=== PATIENT | male | born 1970 | race Caucasian/White ===

== ENCOUNTER → 2017-06-01 | Outpatient (REF) | payer BC | LOC: M LAB REF 18:41 | DX: D48.5 Neoplasm of uncertain behavior of skin (principal) | CPT/HCPCS: 88305 ==

== ENCOUNTER 2017-09-06 22:26 | Emergency (ER) | payer BC ==
[2017-09-06] MEDS: ADACEL/BOOSTRIX VACCINE (DIPHTH/PERTUSS/ACELL/TETANUS)0.5ML SYR (90715) IM (22:58)
[2017-09-06] MEDS: TETRACAINE 0.5% OPHTH SOLN 4ML OS (22:58)
[2017-09-06] MEDS: GENTAMICIN 0.3% OPHTH SOL 5 ML BTL OS (23:11)
== END 2017-09-06 23:20 | disposition home or self-care (01) ==
LOC: M ED 22:26
DX: S05.02XA Injury of conjunctiva and corneal abrasion without foreign body, left eye, initial encounter (principal); W31.1XXA Contact with metalworking machines, initial encounter; Y92.098 Other place in other non-institutional residence as the place of occurrence of the external cause; Z79.899 Other long term (current) drug therapy
CPT/HCPCS: 90715

== ENCOUNTER → 2018-03-12 | Outpatient (CLI) | payer BC ==
[~2018-03-12] MED LIST: ATEN50TA2 PO; LISI10TA4; SYNT125T
--- NOTE | 2018-03-17 08:07 | SLEEPHOME ---
DATE OF PROCEDURE: 03/12/2018 ORDERED: Kamala Quintana Diagnostic home sleep testing was performed due to concern for the obstructive sleep apnea syndrome in this patient with a history of excessive somnolence and nonrestorative sleep who has comorbidities of hypertension and obesity. For testing, a nocturnal T3 respiratory monitoring device was used. Continuous record was made of pulse, oxygen saturation, airflow, chest and abdominal strain and body position. 9 hours and 59 minutes of data were reviewed. Of these, 8 hours and 28 minutes were marked as time in bed. During the interval marked time in bed, there were 745 respiratory events identified of 10 seconds in duration or greater for a respiratory event index of 88. The events were predominantly obstructive, though 55 central and mixed apneas were also seen. Baseline pulse rate was 62 beats per minute. Pulse rate ranged from 32 to 105. Baseline saturation was 93%. Saturations fell as low of 80%. Testing was performed in both the supine and non supine positions. IMPRESSION: Abnormal home sleep testing with repetitive respiratory events and oxygen desaturations to 80% with a respiratory event index of 88 consistent with the obstructive sleep apnea syndrome. RECOMMENDATION: The patient should be encouraged to undergo formal sleep evaluation and in-laboratory pressure titration. Given the frequency of central events, personal titration of pressure therapy in an in-lab setting will be important.
== END ==
LOC: M SLEEP HO 16:29
PROVIDERS: ATTEND Nurse Practitioner Family
DX: R06.83 Snoring (principal); R40.0 Somnolence; G47.30 Sleep apnea, unspecified

== ENCOUNTER → 2018-05-19 | Outpatient (CLI) | payer BC ==
--- NOTE | 2018-05-20 02:36 | REP ---
Clinical: Severe back pain . Technique: AP, lateral, bilateral oblique, and coned-down views. Findings: Alignment and lordosis is maintained. The vertebral bodies including transverse process and spinous processes are intact and normal. There is no evidence for acute fracture / compression injury or subluxation. Minimal disc space narrowing at L5-L1 with mild hypertrophic facet changes are suggested. Remainder examination appears relatively normal for age. Impression: Mild disc space narrowing and L5-S1 cannot be excluded. Electronically Signed by Eliceo Lopez MD 05/20/2018 02:27 A
== END ==
LOC: M RAD 11:30
PROVIDERS: ATTEND Family Medicine
DX: M51.26 Other intervertebral disc displacement, lumbar region (principal)

== ENCOUNTER → 2018-05-21 | Outpatient (CLI) | payer BC ==
--- NOTE | 2018-05-24 18:05 | SLEEPCENT ---
DATE OF PROCEDURE: 05/21/2018 ORDERED BY: Kamala Man Nocturnal polysomnography was performed for the titration of pressure therapy in this patient with a clinical diagnosis of obstructive sleep apnea syndrome confirmed by home testing revealing a respiratory event index of 88. For testing, a [employer] soft edge standard size mask was used, 4 cm of water pressure were applied to the circuit and the lights were extinguished. 8 hours and 6 minutes of data were reviewed. There were 345 minutes of sleep identified. Sleep latency was prolonged at 48 minutes. Rapid eye movement (REM) latency was normal at 77 minutes. Sleep architecture improved with optimal pressure therapy. There were three REM cycles noted. Overall sleep efficiency 71.9%. The electrocardiogram showed a sinus rhythm with an average heart rate of 70 beats per minute. EEG showed normal waveforms for awake and sleep. Respiratory events were fully palliated with continuous positive airway pressure (CPAP) at a pressure of +8. There was some scattered limb activity but remaining measures of sleep physiology were normal. IMPRESSION: Obstructive sleep apnea syndrome (G47.33) RECOMMENDATIONS: Nightly use of pressure therapy 8 cm of water.
== END ==
LOC: M SLEEP 19:20
PROVIDERS: ATTEND Nurse Practitioner Family
DX: G47.33 Obstructive sleep apnea (adult) (pediatric) (principal)

== ENCOUNTER → 2020-03-07 | Outpatient (CLI) | payer SELFPAY | LOC: M LABSMTC 09:58 | PROVIDERS: ATTEND Pediatrics | DX: Z11.59 Encounter for screening for other viral diseases (principal) ==

== ENCOUNTER → 2020-07-20 | Outpatient (CLI) | payer BC ==
[~2020-07-20] MED LIST changes: +LISI10TA22; -LISI10TA4
--- NOTE | 2020-07-20 08:34 | REP ---
INDICATION: LLQ PAIN COMPARISON: None TECHNIQUE: Axial noncontrast images from the lung bases to the pubic symphysis with coronal and sagittal reformations. This CT examination was performed using the following dose reduction techniques: Automated exposure control, adjustment of mA and/or kv according to the patient's size, and use of iterative reconstruction technique. FINDINGS: Lung bases demonstrate scattered noncalcified nodules primarily noted in the left lower lobe including 18 mm nodule.. Hepatomegaly is appreciated without obvious abnormality by noncontrast evaluation. Spleen is upper limits of normal. Pancreas, gallbladder, bilateral adrenal glands and kidneys are normal by noncontrast evaluation. The enteric system is unremarkable and without obstruction or acute inflammatory process. Normal terminal ileum and appendix identified in the right lower quadrant. Scattered colonic diverticula noted without acute diverticulitis. Pelvis demonstrates normal bladder and age-appropriate prostate/seminal vesicles. No ascites. No free air. No adenopathy. No focal inflammatory stranding. Abdominal aorta without aneurysm. Musculoskeletal structures are intact and without acute osseous abnormality. IMPRESSION: 1. No acute abdominopelvic pathology appreciated. 2. Diverticulosis without acute diverticulitis. 3. Hepatomegaly. 4. Scattered pulmonary nodules including 18 mm nodule in the left lower lobe. No prior chest CT is available for comparison. Follow-up contrast-enhanced chest CT is recommended. <Electronically signed by Eliceo Lopez > 07/20/20 [id number]
== END ==
LOC: M RAD 07:05
PROVIDERS: ATTEND Family Medicine
DX: K57.30 Diverticulosis of large intestine without perforation or abscess without bleeding (principal); R16.0 Hepatomegaly, not elsewhere classified; R91.8 Other nonspecific abnormal finding of lung field; R10.32 Left lower quadrant pain

== ENCOUNTER → 2020-08-31 | Outpatient (CLI) | payer BC ==
[~2020-08-31] MED LIST changes: +ISOVUE-370 76% 100ML VIAL As Ordered ONE
--- NOTE | 2020-08-31 09:27 | REP ---
INDICATION: ABNORMAL FINDING OF LUNG FIELD COMPARISON: None TECHNIQUE: Axial contrast enhanced images from the thoracic inlet to the upper abdomen with coronal and sagittal reformations using 75 ml Isovue 370 intravenous contrast material. This CT examination was performed using the following dose reduction techniques: Automated exposure control, adjustment of mA and/or kv according to the patient's size, and use of iterative reconstruction technique. FINDINGS: Scattered small calcified and noncalcified nodules measuring up to 4 mm suggest prior granulomatous disease. There is a 1.9 cm soft tissue mass along the anterobasilar margin of the left lower lobe (series 201; image 72). Nonspecific mediastinal lymph nodes are identified measuring up to approximately 10 mm short axis diameter. No consolidation. No effusion. No pneumothorax. Tracheobronchial tree is patent. Mediastinum demonstrates normal thoracic aorta, pulmonary vasculature, and heart/pericardium. A small hiatal hernia is identified at the gastroesophageal junction. Surrounding musculoskeletal structures are intact. Limited upper abdomen demonstrates normal bilateral adrenal glands. IMPRESSION: 1. Scattered calcified and noncalcified nodules suggesting granulomatous disease. 2. 1.9 cm soft tissue mass along the anterobasilar left lower lobe. While this may also represent sequelae of prior granulomatous disease, further investigation is required. Consider PET-CT and/or biopsy. <Electronically signed by Eliceo Lopez > 08/31/20 [id number]
== END ==
LOC: M RAD 07:01
PROVIDERS: ATTEND Family Medicine
DX: R91.8 Other nonspecific abnormal finding of lung field (principal)
CPT/HCPCS: 71260; Q9967

== ENCOUNTER → 2020-09-07 | Outpatient (CLI) | payer BC ==
[~2020-09-07] MED LIST changes: -ISOVUE-370 76% 100ML VIAL As Ordered ONE
== END ==
LOC: M LAB 14:47
PROVIDERS: ATTEND Internal Medicine Pulmonary Disease
DX: G47.33 Obstructive sleep apnea (adult) (pediatric) (principal)

== ENCOUNTER → 2020-10-09 | Outpatient (CLI) | payer BC ==
--- NOTE | 2020-10-09 16:21 | REP ---
INDICATION: DIAGNOSING LUNG NODULE R91.8. COMPARISON: Comparison CT study of the chest August 31, 2020.. TECHNIQUE: Fifty minutes following the intravenous injection of a 9.31 mCi dose of F-18 FDG, three-dimensional PET scintigraphy is acquired from the skull base to the proximal thighs. Triplanar noncontrast CT scanning is acquired through the same anatomic range for attenuation correction, and image registration with scan parameters optimized to minimize radiation exposure to the patient. PET scintigraphy and CT datasets were fused and displayed on a workstation with multiplanar and projection display capability. FINDINGS: Head and neck soft tissues are unremarkable. In the chest, the left lower lobe pulmonary nodule shows mildly hypermetabolic uptake, maximum standard uptake value in this is 3.31. There is a small subcarinal lymph node which shows hypermetabolic uptake as well, SUV 4.53. There is an AP window region 1.5 cm lymph node with maximum standard uptake value 3.31. This is also minimally hypermetabolic. No adrenal uptake is seen. No other abnormal hypermetabolic uptake is seen in the thorax. In the abdomen and pelvis, normal hepatic, splenic, gastrointestinal, and genitourinary FDG accumulation is seen. No abnormal hypermetabolic uptake is seen in the abdomen or pelvis. IMPRESSION: Mildly hypermetabolic uptake is seen in the left lower lobe nodule as well as in a AP window region mediastinal lymph node and in a subcarinal lymph node. This compatible with granulomatous as well as malignant disease. <Electronically signed by Mauricio Armstrong > 10/09/20 [id number]
== END ==
LOC: M PLARAD 08:50
PROVIDERS: ATTEND Internal Medicine Pulmonary Disease
DX: R91.8 Other nonspecific abnormal finding of lung field (principal)
CPT/HCPCS: 78815; A9552

== ENCOUNTER 2021-02-18 15:06 | Emergency (ER) | payer BC ==
[~2021-02-18] VITALS: Ht 182.9 cm; Wt 144.3 kg
--- OUTSIDE RECORDS SUMMARY | 2021-02-18 15:15 | CCD ---
Author Author [facility] Organization [facility] Address Unknown Phone Unavailable Care Team Providers Care Vp Corporate Partnerships Name Role Phone Esha Tariq MD Unavailable Unavailable Esha Tariq MD Unavailable Unavailable Esha Tariq MD Unavailable Unavailable Esha Tariq MD Unavailable Unavailable Esha Tariq MD Unavailable Unavailable Esha Tariq MD Unavailable Unavailable Esha Tariq MD Unavailable Unavailable Esha Tariq MD Unavailable Unavailable Esha Tariq MD Unavailable Unavailable Esha Tariq MD Unavailable Unavailable Esha Tariq MD Unavailable Unavailable Esha Tariq MD Unavailable Unavailable Esha Tariq MD Unavailable Unavailable Esha Tariq MD Unavailable Unavailable Esha Tariq MD Unavailable Unavailable Esha Tariq MD Unavailable Unavailable Esha Tariq MD Unavailable Unavailable Esha Tariq MD Unavailable Unavailable Esha Tariq MD Unavailable Unavailable Esha Tariq MD Unavailable Unavailable Esha Tariq MD Unavailable Unavailable Esha Tariq MD Unavailable Unavailable Esha Tariq MD Unavailable Unavailable Esha Tariq MD Unavailable Unavailable Esha Tariq MD Unavailable Unavailable Esha Tariq MD Unavailable Unavailable Esha Tariq MD Unavailable Unavailable Esha Tariq MD Unavailable Unavailable Esha Tariq MD Unavailable Unavailable Esha Tariq MD Unavailable Unavailable Re-disclosure Warning The records that you are about to access may contain information from federally-assisted alcohol or drug abuse programs. If such information is present, then the following federally mandated warning applies: This information has been disclosed to you from records protected by federal confidentiality rules (42 CFR part 2). The federal rules prohibit you from making any further disclosure of this information unless further disclosure is expressly permitted by the written consent of the person to whom it pertains or as otherwise permitted by 42 CFR part 2. A general authorization for the release of medical or other information is NOT sufficient for this purpose. The Federal rules restrict any use of the information to criminally investigate or prosecute any alcohol or drug abuse patient.The records that you are about to access may contain highly sensitive health information, the redisclosure of which is protected by Article 27-F of the [facility] Public Health law. If you continue you may have access to information: Regarding HIV / AIDS; Provided by facilities licensed or operated by the [facility] Office of Mental Health; or Provided by the [facility] Office for People With Developmental Disabilities. If such information is present, then the following [facility] mandated warning applies: This information has been disclosed to you from confidential records which are protected by state law. State law prohibits you from making any further disclosure of this information without the specific written consent of the person to whom it pertains, or as otherwise permitted by law. Any unauthorized further disclosure in violation of state law may result in a fine or correction sentence or both. A general authorization for the release of medical or other information is NOT sufficient authorization for further disc losure. Encounters Encounter Providers Location Date Indications Data Source(s ) Outpatient Attender: Esha Chavis/Jerzy teixeira 10/22/2020 02:30:00 PM EDT [facility] ([facility] Outpatient Attender: Esha Chavis/Jerzy teixeira 09/07/2020 11:00:00 AM EDT [facility] ([facility]) Immunizations Vaccine Date Status Description Data Source(s) COVID-19 VACCINE Maureen 08/19/2020 12:00:00 AM EDT completed [facility] Vaccine Series Complete: YESThis Data wa s Submitted to [facility] Via [employer]. Medications No Information Insurance Providers Payer name Policy type / Coverage type Policy ID Covered green party ID Covered green party's relationship to peralta Policy [place] Plan Information [facility] [id number] SP [id number] [facility] [id number] SP [id number] BLUE CARD C [id number] Self [id number] [employer] [place] 302/307 [id number] SP [id number] [place]/307 [id number] SP [id number] [place] 306/806 [id number] SP [id number] [employer] [place] 306/806 [id number] SP [id number] [place] 302/307 [id number] SP [id number] [facility] [id number] SP [id number] [place] [place] 302/307 [id number] SP [id number] SPECTRUM [id number] SP [id number] [employer] BCBS P [id number] S [id number] [place] [place] P[place] 302/307 [id number] SP [id number] SELF PAY ONLY [id number] SP [id number] Problems, Conditions, and Diagnoses No Information Surgeries/Procedures Procedure Description Date Indications Data Source(s) OFFICE OUTPATIENT VISIT 25 MINUTES 10/22/2020 12:00:00 AM EDT [facility] ([facility]) Spirometry 09/07/2020 12:00:00 AM EDT [facility] ([facility]) OFFICE OUTPATIENT VISIT 25 MINUTES 09/07/2020 12:00:00 AM EDT [facility] ([facility]) Results ID Date Data Source [id number] 09/07/2020 03:29:00 PM EDT [facility] ([facility]) Name Value Range Interpretation Code Description Data Chelsea rce(s) Supporting Document(s) Angiotensin converting enzyme [Enzymatic activity/volu me] in Serum or Plasma 30 U/L 14-82 Normal (applies to non-numeric results) [facility] Rheumatoid factor [Units/volume] in Serum or Plasma Laboratory t est result Normal (applies to non-numeric results) [facility]) ID Date Data Source [id number] 09/07/2020 03:29:00 PM EDT [facility]) Name Value Range Interpretation Code Description Data Chelsea rce(s) Supporting Document(s) QuantiFERON Criteria Laboratory test result Norm al (applies to non-numeric results) [facility]) . The QuantiFERON-TB Gold Plus result is determined by subtracting the Nil value from either TB antigen (Ag) tube. The mitogen tube serves as a control for the test. QuantiFERON TB1 Ag Value 0.03 IU/ml Normal (applies to non -numeric results) [facility]) QuantiFERON Mitogen Value Laboratory test result Normal (applies to non- numeric results) [facility]) QuantiFERON TB2 Ag Value 0.03 IU/ml Normal (applies to non -numeric results) [facility] ([facility]) QuantiFERON Nil Value 0.02 IU/ml Normal (applies to non-nu meric results) [facility] ([facility]) QuantiFERON-TB Gold Plus Laboratory test result Normal (applies to non-numeric results) [facility]) The specimen received for QuantiFERON te sting was incubated by the ordering institution. Specific procedures outlined in our Directory of Services and in the package insert for the QuantiFERON Gold (In Tube) test must be followed to enable for proper stimulation of cells for the production of interferon gamma. Chemiluminescence immunoassay methodology Performed at: RN - [facility] [address] [id number] Associate Sales: Serene Agustin MD, Phone: [phone] ID Date Data Source [id number] 09/07/2020 03:29:00 PM EDT [facility] ([facility]) Name Value Range Interpretation Code Description Data Chelsea rce(s) Supporting Document(s) Aspergillus Fumigatus Jacyee Laboratory test result Normal (applies to non- numeric results) [facility]) Aspergillus Niger Jaycee Laboratory test result Nor mal (applies to non-numeric results) [facility]) Aspergillus Flavus Jaycee Laboratory test result No rmal (applies to non-numeric results) [facility] ([facility]) ID Date Data Source [id number] 09/07/2020 03:29:00 PM EDT [facility] ([facility]) Name Value Range Interpretation Code Description Data Chelsea rce(s) Supporting Document(s) Coccidioides sp Ab [Units/volume] in Serum 0.5 IV Normal (applies to non- numeric results) [facility] ([facility]) INTERPRETIVE INFORMATION: Coccidioides A ntibody, Ig.9 IV or less: Negative - No signif icant level of Coccidioides IgG antibody detected. 1.0 - 1.4 IV: Equivocal - Question able presence of Coccidioides IgG antibody detected. Repeat testing in 10-14 days may be helpful. 1.5 IV or greater: Positive - Presence of IgG antibody to Coccidioides detected, suggestive of current or past infection. IgG antibody usually appears by the third week of infection and may persist for years. Both tube precipitin (TP) and CF antigens are represented in the [facility] tests. Histoplasmosis Antibody Laboratory test result A bnormal (applies to non- numeric results) [facility] ([facility]) Detected Detected, M band(s) observed. INTERPRETIVE INFORMATION: Histoplasma spp. Antibodies by Immunodiffusion The immunodiffusion test can detect precipitins to specific Histoplasma protein antigens (M and H). The M band often appears first and may occur without the H band. M precipitin is found in about 70 percent of both acute and chronic histoplasmosis cases. Both M and H occur together in only about 10 percent of patients. REFERENCE RANGE: None Detected Blastomyces Antibody Level Laboratory test result Normal (applies to non- numeric results) [facility] ([facility]) Cryptococcus sp Ag [Presence] in Serum by Immunoassay Laboratory test result Normal (applies to non-numeric results) [facility] ([facility]) Performed at: - [facility] [id number] Associate Sales: Delbert White MD, Phone: [phone] Performed at: [place] [address] [id number] Associate Sales: Paty Ashley MD, Phone: [phone] Performed at: RN - [facility] [address] [id number] Associate Sales: Serene Agustin MD, Phone: [phone] ID Date Data Source [id number] 09/07/2020 10:31:00 AM EDT [facility] ([facility], ) Name Value Range Interpretation Code Description Data Chelsea rce(s) Supporting Document(s) PDFReport Laboratory test result [facility] ([facility], ) FVC-Pred 5.43 L [facility] ([facility], ) FVC-Pre 4.30 L [facility] ([facility]) FVC-%Pred-Pre 79 L [facility] ([facility], ) Fev1-Pred 4.22 L [facility] ([facility]) FVC-LLN 4.44 L [facility] ([facility]) Fev1-Pre 3.49 L [facility] ([facility]) Fev1-%Pred-Pre 82 L [facility] ([facility]) Fev1-LLN 3.38 L [facility] ([facility]) Fev6-Pre 4.30 L [facility] ([facility]) Fev6-Pred 5.25 L [facility] ([facility]) Fev6-%Pred-Pre 82 L [facility] ([facility], ) Fev6-LLN 4.28 L [facility] ([facility]) Wfk8pcc-Ddor 78 % [facility] ([facility]) Vaz2kax-Fox 81 % [facility] ([facility]) Gje6yak-JPV 68 % [facility] ([facility]) Wjs6gax-%Pred-Pre 104 % [facility] ([facility]) Gak7vnq-Adjy 97 % [facility] ([facility], ) Zrd1xch-Cov 100 % [facility] ([facility], ) FEFMax-Pred 10.33 L/E/sec [facility] ([facility]) FEFMax-Pre 7.25 L/E/sec [facility] ([facility]) Lpb6xes-%Pred-Pre 103 % [facility] ([facility]) FEFMax-%Pred-Pre 70 L/E/sec [facility] ([facility]) FEFMax-LLN 7.87 L/E/sec [facility] ([facility]) Awj2327-Gfx 3.69 L/E/sec [facility] ([facility]) Alb4740-Mcwx 3.71 L/E/sec [facility] ([facility]) Urd7104-%Pred-Pre 99 L/E/sec [facility] ([facility]) Gqh3178-LHV 2.02 L/E/sec [facility] ([facility]) ExpTime-Pre 5.33 sec [facility] ([facility]) Jim6vbd4-Cosw 81 % [facility] ([facility]) Gfi0doc0-Bni 81 % [facility] ([facility]) Kwj9gee4-%Pred-Pre 100 % [facility] ([facility]) Pdg0emm5-IXO 72 % [facility] ([facility]) ID Date Data Source [id number] 03/07/2020 12:00:00 AM EST [facility] Name Value Range Interpretation Code Description Data Chelsea rce(s) Supporting Document(s) 2019-nCoV RNA XXX JACKLYN+probe-Imp [facility] This lab was ordered by [facility] and reported by [employer] Procedure Social History Code Duration Value Status Description Data Source(s ) Smoking 10/22/2020 12:00:00 AM EDT Patient has never smoked co mpleted Patient has never smoked [facility] ([facility]) Vital Signs ID Date Data Source UNK Name Value Range Interpretation Code Description Data Source(s) Systolic blood pressure 128 mm[Hg] 128 mm[Hg] M [facility] ([facility]) Diastolic blood pressure 74 mm[Hg] 74 mm[Hg] [facility] ([facility]) Oxygen saturation in Arterial blood by Pulse oximetry 96 % 96 % [facility] ([facility]) Heart rate 81 /min 81 /min [facility] ([facility]) Body weight 320.00 [lb_av] 320.00 [lb_av] [facility] ([facility]) Body mass index (BMI) [Ratio] 43.4 kg/m2 43.4 k g/m2 [facility] ([facility]) Orma body weight 178 [lb_av] 178 [lb_av] [facility] ([facility]) Body weight 145.152 kg 145.152 kg [facility] ([facility]) Body surface area Derived from formula 2.60 m2 2.60 m2 [facility] ([facility]) Body height 72 [in_i] 72 [in_i] [facility] ([facility]) 6'0" Diastolic blood pressure 78 mm[Hg] 78 mm[Hg] [facility] ([facility]) Heart rate 83 /min 83 /min [facility] ([facility]) Oxygen saturation in Arterial blood by Pulse oximetry 98 % 98 % [facility] ([facility]) Body height 72 [in_i] 72 [in_i] [facility] ([facility]) 6'0" Body surface area Derived from formula 2.60 m2 2.60 m2 [facility] ([facility]) Body weight 144.698 kg 144.698 kg [facility] ([facility]) Systolic blood pressure 138 mm[Hg] 138 mm[Hg] [facility] Body weight 319.00 [lb_av] 319.00 [lb_av] [facility] ([facility]) Body mass index (BMI) [Ratio] 43.3 kg/m2 43.3 k g/m2 [facility] ([facility]) Orma body weight 178 [lb_av] 178 [lb_av] [facility] ([facility]) Oxygen saturation in Arterial blood by Pulse oximetry 98 % 98 % [facility] ([facility]) Body height 72 [in_i] 72 [in_i] [facility] ([facility]) 6'0" Body weight 319.00 [lb_av] 319.00 [lb_av] [facility] ([facility]) Body mass index (BMI) [Ratio] 43.3 kg/m2 43.3 k g/m2 [facility] ([facility]) Orma body weight 178 [lb_av] 178 [lb_av] [facility] ([facility]) Body weight 144.698 kg 144.698 kg [facility] ([facility]) Body surface area Derived from formula 2.60 m2 2.60 m2 [facility] ([facility]) Body weight 321.25 [lb_av] 321.25 [lb_av] [facility] Body mass index (BMI) [Ratio] 43.6 kg/m2 43.6 k g/m2 [facility] ([facility]) Orma body weight 178 [lb_av] 178 [lb_av] [facility] Body weight 145.719 kg 145.719 kg [facility] ([facility]) Body surface area Derived from formula 2.61 m2 2.61 m2 [facility] ([facility]) Systolic blood pressure 128 mm[Hg] 128 mm[Hg] [facility] ([facility]) Diastolic blood pressure 86 mm[Hg] 86 mm[Hg] [facility] ([facility]) Heart rate 78 /min 78 /min [facility] ([facility]) Oxygen saturation in Arterial blood by Pulse oximetry 98 % 98 % [facility] ([facility]) Body temperature 97.1 [degF] 97.1 [degF] [facility] ([facility]) Body height 72 [in_i] 72 [in_i] [facility] ([facility]) 6'0"
[2021-02-18] MEDS ORDERED: LEVO175T2 (15:21)
[2021-02-18 15:57] LABS: BASO # 0.1 10^3/uL (0.0-0.2); BASO % 0.7 % (0.0-1.0); EOS # 0.1 10^3/uL (0.0-0.5); EOS % 0.7 % (0.0-3.0); HEMATOCRIT 46.7 % (42.0-52.0); HEMOGLOBIN 15.3 g/dl (13.5-17.5); LYMPH # 1.7 10^3/uL (1.5-5.0); LYMPH % 20.5 % (24.0-44.0); MEAN CORPUSCULAR HEMOGLOBIN 27.7 pg (27.0-33.0); MEAN CORPUSCULAR HGB CONC 32.8 g/dl (32.0-36.5); MEAN CORPUSCULAR VOLUME 84.6 fl (80.0-96.0); MONO # 0.7 10^3/uL (0.0-0.8); NEUTROPHILS # 5.9 10^3/uL (1.5-8.5); NEUTROPHILS % 69.5 % (36.0-66.0); PLATELET COUNT, AUTOMATED 234 10^3/uL (150-450); RED BLOOD COUNT 5.52 10^6/uL (4.30-6.10); WHITE BLOOD COUNT 8.5 10^3/uL (4.0-10.0)
[2021-02-18 16:26] LABS: CK-MB VALUE MASS 2.3 NG/ML (<3.6); CPK CREATINE PHOSPHOKINASE 126 U/L (39-308); MB/CK RELATIVE INDEX 1.83 (< OR =4); TROPONIN I < 0.02 NG/ML (< 0.10)
[2021-02-18 16:34] LABS: BLOOD UREA NITROGEN 19 MG/DL (7-18); CALCIUM LEVEL 9.5 MG/DL (8.5-10.1); CARBON DIOXIDE LEVEL 28 MEQ/L (21-32); CHLORIDE LEVEL 106 MEQ/L (98-107); CREATININE FOR GFR 0.96 MG/DL (0.70-1.30); GLOMERULAR FILTRATION RATE > 60.0 (>56); GLUCOSE, FASTING 103 MG/DL (70-100); POTASSIUM SERUM 4.3 MEQ/L (3.5-5.1); SODIUM LEVEL 140 MEQ/L (136-145)
--- NOTE | 2021-02-18 19:46 | ECGEPIP ---
[facility] - ED Test Date: 2021-02-18 Pat Name: BRYANNA BURRELL Department: Room: - Gender: Male Hall Tender: DERRICK : 1970 Requested By: Rohit Hitchcock Order Number: [id number] Reading MD: Rohit Hitchcock Measurements Intervals [place] Rate: 76 P: 48 NC: 162 QRS: 34 QRSD: 76 T: 9 QT: 382 QTc: 429 Interpretive Statements Normal sinus rhythm Nonspecific ST T wave changes No prior ECG for comparison Electronically Signed on 02-18-2021 19:45:55 EST by Rohit Hitchcock
--- OUTSIDE RECORDS SUMMARY | 2021-02-18 22:11 | CCD ---
Author Author [facility] Organization [facility] Address Unknown Phone Unavailable Care Team Providers Care Commodity Analyst Name Role Phone Esha Tariq MD Unavailable Unavailable Esha Tariq MD Unavailable Unavailable Esha Tariq MD Unavailable Unavailable Esha Tariq MD Unavailable Unavailable Esha Tariq MD Unavailable Unavailable Esha Tariq MD Unavailable Unavailable Esha Tariq MD Unavailable Unavailable Esha Tariq MD Unavailable Unavailable Esha Tariq MD Unavailable Unavailable Esah Tariq MD Unavailable Unavailable Esha Tariq MD [...] is protected by Article 27-F of the [facility] Public Health law. If you continue you may have access to information: Regarding HIV / AIDS; Provided by facilities licensed or operated by the [facility] Office of Mental Health; or Provided by the [facility] Office for People With Developmental Disabilities. If such information is present, then the following [facility] mandated warning applies: This information has [...] law may result in a fine or penitentiary sentence or both. A general authorization for the release of medical or other information is NOT sufficient authorization for further disc losure. Encounters Encounter Providers Location Date Indications Data Source(s ) Outpatient Attender: Esha Chavis/Jerzy teixeira 10/22/2020 02:30:00 PM EDT [facility] ([facility] Outpatient Attender: Esha Chavis/Jerzy teixeira 09/07/2020 11:00:00 AM EDT [facility] ([facility]) Immunizations Vaccine Date Status Description Data Source(s) COVID-19 VACCINE Maureen 08/19/2020 12:00:00 AM EDT completed [facility] Vaccine Series Complete: YESThis Data wa s Submitted to [facility] Via [id number]. Medications No Information Insurance Providers Payer name Policy type / Coverage type Policy ID Covered republican ID Covered republican's relationship to peralta Policy Peralta Plan Information [facility] [id number] SP [id number] [facility] [id number] SP [id number] BLUE CARD C [id number] Self [id number] [employer] [place]/307 [id number] SP [id number] [place] [place]/307 [id number] SP [id number] [place] 306/806 [id number] SP [id number] [employer] [place] 306/806 [id number] SP [id number] [place] [place] 302/307 [id number] SP [id number] [facility] [id number] SP [id number] [employer] [place] 302/307 [id number] SP [id number] SPECTRUM [id number] SP [id number] [employer] P [id number] S [id number] [employer] [place] 302/307 [id number] SP [id number] SELF PAY ONLY [id number] SP [id number] Problems, Conditions, and Diagnoses No Information Surgeries/Procedures Procedure Description Date Indications Data Source(s) OFFICE OUTPATIENT VISIT 25 MINUTES 10/22/2020 12:00:00 AM EDT [facility] ([facility]) Spirometry 09/07/2020 12:00:00 AM EDT [facility] ([facility]) OFFICE OUTPATIENT VISIT 25 MINUTES 09/07/2020 12:00:00 AM EDT [facility] ([facility]) Results ID Date Data Source [id number] 09/07/2020 03:29:00 PM EDT [facility] ([facility]) Name Value Range Interpretation Code Description Data Chelsea rce(s) Supporting Document(s) Angiotensin converting enzyme [Enzymatic activity/volu me] in Serum or Plasma 30 U/L 14-82 Normal (applies to non-numeric results) [facility] ([facility]) Rheumatoid factor [Units/volume] in Serum or Plasma Laboratory t est result Normal (applies to non-numeric results) [facility]) ID Date Data Source [id number] 09/07/2020 03:29:00 PM EDT [facility]) Name Value Range Interpretation Code Description Data Chelsea rce(s) Supporting Document(s) QuantiFERON Criteria Laboratory test result Norm al (applies to non-numeric results) [facility]) . The QuantiFERON-TB Gold Plus result is determined by subtracting the Nil value from either TB antigen (Ag) tube. The mitogen tube serves as a control for the test. QuantiFERON TB1 Ag Value 0.03 IU/ml Normal (applies to non -numeric results) [facility]) QuantiFERON Mitogen Value Laboratory test result Normal (applies to non- numeric results) [facility]) QuantiFERON TB2 Ag Value 0.03 IU/ml Normal (applies to non -numeric results) [facility] ([facility]) QuantiFERON Nil Value 0.02 IU/ml Normal (applies to non-nu meric results) [facility] ([facility]) QuantiFERON-TB Gold Plus Laboratory test result Normal (applies to non-numeric results) [facility]) The specimen received for QuantiFERON te sting was incubated by the ordering institution. Specific procedures outlined in our Directory of Services and in the package insert for the QuantiFERON Gold (In Tube) test must be followed to enable for proper stimulation of cells for the production of interferon gamma. Chemiluminescence immunoassay methodology Performed at: RN - [facility] [address] [id number] Pipe Coverer: Serene Agustin MD, Phone: [phone] ID Date Data Source [id number] 09/07/2020 03:29:00 PM EDT [facility] ([facility]) Name Value Range Interpretation Code Description Data Chelsea rce(s) Supporting Document(s) Aspergillus Fumigatus Jaycee Laboratory test result Normal (applies to non- numeric results) [facility]) Aspergillus Niger Jaycee Laboratory test result Nor mal (applies to non-numeric results) [facility]) Aspergillus Flavus Jaycee Laboratory test result No rmal (applies to non-numeric results) [facility] ([facility]) ID Date Data Source [id number] 09/07/2020 03:29:00 PM EDT [facility] ([facility]) Name Value Range Interpretation Code Description Data Chelsea rce(s) Supporting Document(s) Coccidioides sp Ab [Units/volume] in Serum 0.5 IV Normal (applies to non- numeric results) [facility] ([facility]) INTERPRETIVE INFORMATION: Coccidioides A ntibody, Ig.9 [...] A bnormal (applies to non- numeric results) [facility] ([facility]) Detected Detected, M band(s) observed. INTERPRETIVE [...] result Normal (applies to non- numeric results) [facility] ([facility]) Cryptococcus sp Ag [Presence] in Serum by Immunoassay Laboratory test result Normal (applies to non-numeric results) [facility] ([facility]) Performed at: - [facility] [id number] Pipe Coverer: Delbert White MD, Phone: [phone] Performed at: [facility] [address] [id number] Pipe Coverer: Paty Ashley MD, Phone: [phone] Performed at: RN - [facility] [address] [id number] Pipe Coverer: Serene Agustin MD, Phone: [phone] ID Date Data Source [id number] 09/07/2020 10:31:00 AM EDT [facility] ([facility], ) Name Value Range Interpretation Code Description Data Chelsea rce(s) Supporting Document(s) PDFReport Laboratory test result [facility] ([facility], ) FVC-Pred 5.43 L [facility] ([facility], ) FVC-Pre 4.30 L [facility] ([facility]) FVC-%Pred-Pre 79 L [facility] ([facility], ) Fev1-Pred 4.22 L [facility] ([facility]) FVC-LLN 4.44 L [facility] ([facility]) Fev1-Pre 3.49 L [facility] ([facility]) Fev1-%Pred-Pre 82 L [facility] ([facility]) Fev1-LLN 3.38 L [facility] ([facility]) Fev6-Pre 4.30 L [facility] ([facility]) Fev6-Pred 5.25 L [facility] ([facility]) Fev6-%Pred-Pre 82 L [facility] ([facility], ) Fev6-LLN 4.28 L [facility] ([facility]) Mag5kzw-Udny 78 % [facility] ([facility]) Fyz2qgq-Asx 81 % [facility] ([facility]) Xax5uit-HRK 68 % [facility] ([facility]) Grm6jpk-%Pred-Pre 104 % [facility] ([facility]) Ift2cpj-Tgvp 97 % [facility] ([facility], ) Rzi8vhi-Qtt 100 % [facility] ([facility], ) FEFMax-Pred 10.33 L/E/sec [facility] ([facility]) FEFMax-Pre 7.25 L/E/sec [facility] ([facility]) Xkr5fej-%Pred-Pre 103 % [facility] ([facility]) FEFMax-%Pred-Pre 70 L/E/sec [facility] ([facility]) FEFMax-LLN 7.87 L/E/sec [facility] ([facility]) Xdv0661-Tfg 3.69 L/E/sec [facility] ([facility]) Mfb2661-Msju 3.71 L/E/sec [facility] ([facility]) Uck5753-%Pred-Pre 99 L/E/sec [facility] ([facility]) Mbq1601-MNO 2.02 L/E/sec [facility] ([facility]) ExpTime-Pre 5.33 sec [facility] ([facility]) Zeu4hou0-Zfkd 81 % [facility] ([facility]) Fkr0mmv5-Sdq 81 % [facility] ([facility]) Qxf7skq5-%Pred-Pre 100 % [facility] ([facility]) Ryk1vkm2-NHR 72 % [facility] ([facility]) ID Date Data Source [id number] 03/07/2020 12:00:00 AM EST [facility] Name Value Range Interpretation Code Description Data Chelsea rce(s) Supporting Document(s) 2019-nCoV RNA XXX JACKLYN+probe-Imp [facility] This lab was ordered by [facility] and reported by [employer] Procedure Social History Code Duration Value Status Description Data Source(s ) Smoking 10/22/2020 12:00:00 AM EDT Patient has never smoked co mpleted Patient has never smoked [facility] ([facility]) Vital Signs ID Date Data Source UNK Name Value Range Interpretation Code Description Data Source(s) Systolic blood pressure 128 mm[Hg] 128 mm[Hg] M [facility] ([facility]) Diastolic blood pressure 74 mm[Hg] 74 mm[Hg] [facility] ([facility]) Heart rate 81 /min 81 /min [facility] ([facility]) Oxygen saturation in Arterial blood by Pulse oximetry 96 % 96 % [facility] ([facility]) Body height 72 [in_i] 72 [in_i] [facility] ([facility]) 6'0" Body weight 320.00 [lb_av] 320.00 [lb_av] [facility] ([facility]) Body mass index (BMI) [Ratio] 43.4 kg/m2 43.4 k g/m2 [facility] ([facility]) Ocate body weight 178 [lb_av] 178 [lb_av] [facility] ([facility]) Body weight 145.152 kg 145.152 kg [facility] ([facility]) Body surface area Derived from formula 2.60 m2 2.60 m2 [facility] ([facility]) Diastolic blood pressure 78 mm[Hg] 78 mm[Hg] [facility] ([facility]) Heart rate 83 /min 83 /min [facility] ([facility]) Oxygen saturation in Arterial blood by Pulse oximetry 98 % 98 % [facility] ([facility]) Body height 72 [in_i] 72 [in_i] [facility] ([facility]) 6'0" Body weight 144.698 kg 144.698 kg [facility] ([facility]) Body surface area Derived from formula 2.60 m2 2.60 m2 [facility] ([facility]) Systolic blood pressure 138 mm[Hg] 138 mm[Hg] [facility] Body weight 319.00 [lb_av] 319.00 [lb_av] [facility] Body mass index (BMI) [Ratio] 43.3 kg/m2 43.3 k g/m2 [facility] ([facility]) Ocate body weight 178 [lb_av] 178 [lb_av] [facility] ([facility]) Oxygen saturation in Arterial blood by Pulse oximetry 98 % 98 % [facility] ([facility]) Body height 72 [in_i] 72 [in_i] [facility] ([facility]) 6'0" Body weight 319.00 [lb_av] 319.00 [lb_av] [facility] ([facility]) Body mass index (BMI) [Ratio] 43.3 kg/m2 43.3 k g/m2 [facility] ([facility]) Ocate body weight 178 [lb_av] 178 [lb_av] [facility] ([facility]) Body weight 144.698 kg 144.698 kg [facility] ([facility]) Body surface area Derived from formula 2.60 m2 2.60 m2 [facility] ([facility]) Body weight 321.25 [lb_av] 321.25 [lb_av] [facility] Body mass index (BMI) [Ratio] 43.6 kg/m2 43.6 k g/m2 [facility] ([facility]) Ocate body weight 178 [lb_av] 178 [lb_av] [facility] Body weight 145.719 kg 145.719 kg [facility] ([facility]) Body surface area Derived from formula 2.61 m2 2.61 m2 [facility] ([facility]) Systolic blood pressure 128 mm[Hg] 128 mm[Hg] [facility] ([facility]) Diastolic blood pressure 86 mm[Hg] 86 mm[Hg] [facility] ([facility]) Heart rate 78 /min 78 /min [facility] ([facility]) Oxygen saturation in Arterial blood by Pulse oximetry 98 % 98 % [facility] ([facility]) Body temperature 97.1 [degF] 97.1 [degF] [facility] ([facility]) Body height 72 [in_i] 72 [in_i] [facility] ([facility]) 6'0"
[2021-02-18 22:28] VITALS: BP 164/86
--- NOTE | 2021-02-18 22:29 | REPVR ---
PROCEDURE INFORMATION: Exam: XR Chest Exam date and time: 02/18/2021 9:09 PM Age: 50 years old Clinical indication: Pain; Angina pectoris; Additional info: Chest pain TECHNIQUE: Imaging protocol: XR of the chest. Views: 1 view. COMPARISON: CT Chest with contrast 08/31/2020 7:42 AM. Prior report has not been made available for review at the time of this emergent interpretation, however was requested. FINDINGS: LUNGS and PLEURAL SPACE: The lungs are symmetrically expanded. Lung volumes are within normal limits. Azygos lobe incidentally noted as variant. Previously seen pulmonary nodules are not identified radiographically. Follow-up or further characterization should be based upon results of prior reports. No evidence of peribronchial thickening. There is no consolidation, pneumothorax, or pleural effusion. No evidence of pulmonary vascular redistribution or overt edema. MEDIASTINUM: There is no mediastinal shift or widening. CARDIAC SILHOUETTE: Cardiothoracic ratio is within normal limits. BONY THORAX: No acute findings are seen. IMPRESSION: No acute infiltrate. Other findings discussed above. Electronically signed by: Moises Menjivar On 02/18/2021 22:28:52 PM
== END 2021-02-18 22:43 | disposition home or self-care (01) ==
LOC: M ED 15:06
DX: R07.89 Other chest pain (principal); F43.21 Adjustment disorder with depressed mood; I10 Essential (primary) hypertension; R91.1 Solitary pulmonary nodule; Z79.899 Other long term (current) drug therapy

== ENCOUNTER → 2021-03-18 | Outpatient (CLI) | payer BC ==
[~2021-03-18] MED LIST changes: +LEVO175T2 PO
== END ==
LOC: M RAD 08:27
PROVIDERS: ATTEND Internal Medicine Pulmonary Disease
DX: R91.8 Other nonspecific abnormal finding of lung field (principal)

== ENCOUNTER → 2021-04-26 | Outpatient (CLI) | payer BC | LOC: M LABSMTC 11:32 | PROVIDERS: ATTEND Anesthesiology | DX: Z01.812 Encounter for preprocedural laboratory examination (principal); Z20.822 Contact with and (suspected) exposure to COVID-19 ==

== ENCOUNTER → 2021-04-26 | Outpatient (CLI) | payer BC | LOC: M PLALAB 12:11 | PROVIDERS: ATTEND Internal Medicine Pulmonary Disease | DX: G47.33 Obstructive sleep apnea (adult) (pediatric) (principal) ==

== ENCOUNTER 2021-05-01 05:59 | Day surgery (SDC) | payer BC ==
[~2021-05-01] VITALS: Ht 182.9 cm; Wt 148.7 kg
[2021-05-01] MEDS ORDERED: LIDOCAINE 1% MDV 20ML VIAL SQ PRN (06:00)
[2021-05-01] MEDS ORDERED: ALBUTEROL SULFATE 2.5 MG/0.5 ML INH NEB SOLN INH ONE (07:00)
[2021-05-01] MEDS ORDERED: LIDOCAINE 4% INJ 5ML AMP INH ONE (07:00)
[2021-05-01] MEDS ORDERED: propofoL 200 MG/20 ML VIAL As Ordered ONE (07:14)
[2021-05-01] MEDS ORDERED: MIDAZOLAM INJ 2MG/2ML VIAL (J2250 PER 1MG) As Ordered ONE (07:14)
[2021-05-01] MEDS ORDERED: fentaNYL 100 MCG/2 ML INJECTION As Ordered ONE (07:14)
[2021-05-01] MEDS ORDERED: ROCURONIUM BROMIDE 50 MG/5 ML VIAL As Ordered ONE (07:14)
[2021-05-01] MEDS ORDERED: LIDOCAINE 2% 100MG/5ML SDV (FOR ANES.) As Ordered ONE (07:14)
[2021-05-01] MEDS ORDERED: EPINEPHrine 1MG/10ML SYRINGE 1.5IN As Ordered ONE (07:18)
[2021-05-01] MEDS ORDERED: CETACAINE SPRAY 5GM As Ordered ONE (07:18)
[2021-05-01] MEDS ORDERED: LIDOCAINE 1% SDV 30ML VIAL As Ordered ONE (07:18)
[2021-05-01] MEDS ORDERED: THROMBIN SOLN 5,000 UNITS VIAL As Ordered ONE (07:18)
[2021-05-01] MEDS ORDERED: ePHEDrine SULFATE 25 MG/5 ML(5MG/ML) SYRINGE As Ordered ONE (08:13)
[2021-05-01] MEDS ORDERED: ONDANSETRON 4MG/2ML VIAL As Ordered ONE (08:26)
[2021-05-01] MEDS ORDERED: KETOROLAC 60MG 2ML VIAL As Ordered ONE ×2 (08:26→10:05)
[2021-05-01] MEDS ORDERED: dexameTHASONE 4 MG/ML 1ML VIAL (J1100 PER 1MG) As Ordered ONE (08:26)
[2021-05-01] MEDS ORDERED: ACETAMINOPHEN 1000MG 100ML IV BTL (OFIRMEV) (J0131 PER 10MG) As Ordered ONE (08:26)
[2021-05-01] MEDS ORDERED: SUGAMMADEX SODIUM 500 MG/5 ML VIAL (BRIDION) As Ordered ONE (08:26)
[2021-05-01] MEDS ORDERED: LR 1,000 ML IV SCH (09:45)
[2021-05-01] MEDS ORDERED: oxyCODONE 5MG TAB PO PRN (09:45)
[2021-05-01] MEDS ORDERED: fentaNYL 100 MCG/2 ML INJECTION IV PRN (09:45)
[2021-05-01] MEDS ORDERED: ONDANSETRON 4MG/2ML VIAL IV PRN (09:45)
[2021-05-01] MEDS ORDERED: HYDROMORPHONE HCL 0.5 MG/ 0.5 ML SYRINGE (J1170 PER 1) IV PRN (09:45)
[2021-05-01 10:24] VITALS: BP 120/69
[2021-05-10] MEDS ORDERED: LR 1,000 ML IV SCH (06:00)
== END 2021-05-01 10:28 | disposition home or self-care (01) ==
LOC: M SDC 05:59
PROVIDERS: ATTEND Internal Medicine Pulmonary Disease
DX: R91.8 Other nonspecific abnormal finding of lung field (principal); R59.0 Localized enlarged lymph nodes; B39.9 Histoplasmosis, unspecified; I10 Essential (primary) hypertension; G47.33 Obstructive sleep apnea (adult) (pediatric); E89.0 Postprocedural hypothyroidism; R73.03 Prediabetes; E66.9 Obesity, unspecified; Z79.899 Other long term (current) drug therapy
CPT/HCPCS: 31623; 31624; 31627; 31654; 71045; 87070; 87071; 87102; 87116; 87205; 87206; 88104; 88173; 88305; J0131; J1100; J1885; J2250; J2405; J3010

== ENCOUNTER → 2021-10-11 | Outpatient (CLI) | payer BC | LOC: M PLAIMG 12:23 | PROVIDERS: ATTEND Physician Assistant Surgical | DX: M79.672 Pain in left foot (principal) ==

== ENCOUNTER → 2021-10-30 | Outpatient (CLI) | payer BC ==
[~2021-10-30] MED LIST changes: +ISOVUE-370 76% 100ML VIAL As Ordered ONE
== END ==
LOC: M RAD 13:21
PROVIDERS: ATTEND Internal Medicine Pulmonary Disease
DX: R91.8 Other nonspecific abnormal finding of lung field (principal)
CPT/HCPCS: 71260; Q9967

== ENCOUNTER → 2021-12-26 | Outpatient (CLI) | payer BC ==
[~2021-12-26] MED LIST changes: -ISOVUE-370 76% 100ML VIAL As Ordered ONE
== END ==
LOC: M PLARAD 09:50
PROVIDERS: ATTEND Physician Assistant Surgical
DX: S86.312A Strain of muscle(s) and tendon(s) of peroneal muscle group at lower leg level, left leg, initial encounter (principal); M79.672 Pain in left foot

== ENCOUNTER → 2022-01-31 | Outpatient (CLI) | payer BC ==
[~2022-01-31] MED LIST changes: +LIDOCAINE 1% MDV 20ML VIAL As Ordered ONE; +LIDOCAINE 2% MDV 20ML VIAL As Ordered ONE; +methylPREDNISolone SUSP 40MG/ML 1ML VIAL (DEPO MEDROL) As Ordered ONE
== END ==
LOC: M IRPRO 12:19
PROVIDERS: ATTEND Physician Assistant Surgical
DX: M76.72 Peroneal tendinitis, left leg (principal); M79.672 Pain in left foot
CPT/HCPCS: 20550; 76942; J1030

== ENCOUNTER → 2022-11-28 | Outpatient (CLI) | payer BC ==
[~2022-11-28] MED LIST changes: -LIDOCAINE 1% MDV 20ML VIAL As Ordered ONE; -LIDOCAINE 2% MDV 20ML VIAL As Ordered ONE; -methylPREDNISolone SUSP 40MG/ML 1ML VIAL (DEPO MEDROL) As Ordered ONE
== END ==
LOC: M RAD 10:29
PROVIDERS: ATTEND Internal Medicine Pulmonary Disease
DX: R91.8 Other nonspecific abnormal finding of lung field (principal)

== ENCOUNTER 2024-03-16 10:42 | Day surgery (SDC) | payer BC ==
[~2024-03-16] VITALS: Ht 182.9 cm; Wt 125.8 kg
[~2024-03-16 10:42] MED LIST changes: +INDA1.253 PO
[2024-03-16] MEDS ORDERED: LIDOCAINE 2% 100MG/5ML SDV (FOR ANES.) As Ordered ONE (13:03)
[2024-03-16] MEDS ORDERED: propofoL 200 MG/20 ML VIAL As Ordered ONE (13:03)
[2024-03-16 13:48] VITALS: BP 121/71; TEMP 98.1; O2SAT 97
== END 2024-03-16 13:57 | disposition home or self-care (01) ==
LOC: M OPP 10:42
PROVIDERS: ATTEND Internal Medicine Gastroenterology
DX: Z12.11 Encounter for screening for malignant neoplasm of colon (principal); K64.0 First degree hemorrhoids; K57.30 Diverticulosis of large intestine without perforation or abscess without bleeding; I10 Essential (primary) hypertension; E03.9 Hypothyroidism, unspecified; G47.33 Obstructive sleep apnea (adult) (pediatric); Z99.89 Dependence on other enabling machines and devices; Z79.890 Hormone replacement therapy; Z79.899 Other long term (current) drug therapy